=== PATIENT | female | born 1945 | race Caucasian/White ===

== ENCOUNTER → 2017-04-25 | Outpatient (CLI) | payer MEDICARE, OTHER | END | disposition home or self-care (01) | LOC: HKI 10:56 | PROVIDERS: ATTEND Orthopaedic Surgery | DX: M25.551 Pain in right hip (principal); M16.11 Unilateral primary osteoarthritis, right hip | CPT/HCPCS: G0463 ==

== ENCOUNTER → 2017-05-27 | Outpatient (CLI) | payer MEDICARE, OTHER ==
--- NOTE | 2017-05-27 15:47 | RADRPT ---
PROCEDURE: XR Right hip and pelvis. CLINICAL INDICATION: Right hip pain and pelvic pain. TECHNIQUE: 3 views. Frontal pelvis. Frontal and lateral right hip. COMPARISON: None. FINDINGS: There is no fracture or dislocation. The soft tissues are normal. There are degenerative changes of the right hip with joint space narrowing, osteophytes, subarticula r sclerosis, and subarticular cysts. There is mild right hip protrusio. The left hip is normal. There is no lytic or blastic lesion. There is no radiopaque foreign body. IMPRESSION: 1. Severe degenerative changes of the right hip amado 2. Otherwise unremarkable study. RPTAT: QQ .Brock Garcia MD, MD Date Time Electronically viewed and signed by .Brock Garcia MD, MD on 05/27/2017 15:47 .R/
== END | disposition home or self-care (01) ==
LOC: HKI 10:54
PROVIDERS: ATTEND Orthopaedic Surgery
DX: M25.551 Pain in right hip (principal); M16.11 Unilateral primary osteoarthritis, right hip
CPT/HCPCS: 73502; G0463

== ENCOUNTER 2017-06-09 05:11 | Inpatient (IN) | payer MEDICARE, OTHER ==
[2017-06-09] VITALS (40 sets, daily range): BP systolic 98–149; BP diastolic 53–88; PULSE 64–94; RESP 6–29; Ht 175.3 cm; Wt 84.1 kg
[~2017-06-09] VITALS: Ht 175.3 cm; Wt 84.1 kg
[2017-06-09] MEDS ORDERED: BACITRACIN 50000 UNITS INJ ONE (06:39)
[2017-06-09] MEDS ORDERED: VANCOMYCIN 1 GM INJ ONE (06:55)
[2017-06-09] MEDS ORDERED: POLYMYXIN B 500000 UNIT INJ ONE (06:55)
[2017-06-09] MEDS ORDERED: LISI20TA11 PO (06:55)
[2017-06-09] MEDS ORDERED: SODIUM CL BACTERIOSTATIC 30 ML INJ ONE (06:55)
[2017-06-09] MEDS ORDERED: CRES10 PO (06:55)
[2017-06-09] MEDS ORDERED: DESFLURANE 15 MIN ONE (07:00)
[2017-06-09] MEDS ORDERED: ONDANSETRON 4 MG IV X 1 DOSE IV SCH (07:00)
[2017-06-09] MEDS ORDERED: TRANEXAMIC ACID IVPB SCH (07:00)
[2017-06-09] MEDS ORDERED: LACTATED RINGER'S 1,000 ML IV SCH (07:00)
[2017-06-09] MEDS ORDERED: SOD CHLORIDE 0.9% IV SCH (07:00)
[2017-06-09] MEDS ORDERED: CELECOXIB 400 MG PO X1 DOSE PO SCH (07:00)
[2017-06-09] MEDS ORDERED: traMADOL 50 MG TAB X 1 DOSE PO SCH (07:00)
[2017-06-09] MEDS ORDERED: EPHEDrine SULFATE 50 MG/5 ML SYG ONE (07:00)
[2017-06-09] MEDS ORDERED: BUPIVACAINE LIPOSOME/PF 266 MG/20 ML VIAL INFIL SCH (07:00)
[2017-06-09] MEDS ORDERED: PAIN COCKTAIL-CEFUROXIME IRR SCH ×7 (07:00)
[2017-06-09] MEDS ORDERED: SOD CHLORIDE 0.9% IVPB SCH (07:00)
[2017-06-09] MEDS ORDERED: TRANEXAMIC ACID IV SCH (07:00)
[2017-06-09] MEDS ORDERED: CEFAZOLIN 2GM/50 ML (PMX) 50 ML X1 BEFORE INCISION IVPB SCH (07:00)
[2017-06-09] MEDS ORDERED: EXPAREL NOTE (BUPIVICAINE LIPOSOMAL) XX SCH (07:00)
[2017-06-09] MEDS ORDERED: oxyCODONE (CR) 10 MG TAB [oxyCONTIN] X1 DOSE PO SCH (07:00)
[2017-06-09] MEDS ORDERED: PREGABALIN 300 MG PO X1 PO SCH (07:00)
[2017-06-09] MEDS ORDERED: CEFAZOLIN 1 GM INJ ONE (07:08)
[2017-06-09] MEDS ORDERED: PROPOFOL 20 ML ONE (07:08)
[2017-06-09] MEDS ORDERED: ROCURONIUM 50 MG INJ ONE (07:08)
[2017-06-09] MEDS ORDERED: GLYCOPYRROLATE 0.4 MG INJ ONE (07:08)
[2017-06-09] MEDS ORDERED: NEOSTIGMINE 3 MG/3 ML SYRINGE ONE (07:08)
[2017-06-09] MEDS ORDERED: MIDAZOLAM 1 MG/ML 2 ML INJ ONE (07:11)
[2017-06-09] MEDS ORDERED: FENTAnyl 50 MCG/ML VIAL ONE (07:11)
[2017-06-09] MEDS ORDERED: ONDANSETRON 4 MG INJ ONE (07:11)
[2017-06-09] MEDS ORDERED: DEXAMETHASONE 4 MG/ML 1 ML INJ ONE (07:11)
[2017-06-09] MEDS ORDERED: ETOMIDATE 20 MG INJ ONE (07:12)
[2017-06-09] MEDS ORDERED: PROPOFOL 100 ML ONE (07:12)
--- NOTE | 2017-06-09 07:14 | HPN ---
Date/Time of Note Date/Time of Note DATE: 06/09/17 TIME: 07:14 Interval H&P Admission Note Pt. seen H&P reviewed: No system changes No changes from H&P on 05/23/17 by DAVID Baltazar MD Jun 09, 2017 07:14
[2017-06-09] MEDS ORDERED: ALBUTEROL 0.083% (NEB) 2.5 MG/3 ML AMP HHN PRN (08:30)
[2017-06-09] MEDS ORDERED: OXYCODONE/ACETAMINOPHEN (5/325) TAB PO PRN ×2 (08:30)
[2017-06-09] MEDS ORDERED: hydrALAzine 20 MG INJ IV PRN (08:30)
[2017-06-09] MEDS ORDERED: DIPHENHYDRAMINE 50 MG INJ IV PRN (08:30)
[2017-06-09] MEDS ORDERED: MEPERIDINE 25 MG INJ IV PRN (08:30)
[2017-06-09] MEDS ORDERED: LABETALOL HCL 20MG INJ IV PRN (08:30)
[2017-06-09] MEDS ORDERED: TRIMETHOBENZAMIDE 100 MG/ML VIAL IM PRN (08:30)
[2017-06-09] MEDS ORDERED: ONDANSETRON 4 MG INJ IV PRN ×2 (08:30→10:00)
[2017-06-09] MEDS ORDERED: MIDAZOLAM 1 MG/ML 2 ML INJ IV PRN (08:30)
[2017-06-09] MEDS ORDERED: EPHEDrine SULFATE 50 MG/5 ML SYG IV PRN (08:30)
[2017-06-09] MEDS ORDERED: HYDROmorphONE (0.2 MG/ML) 10ML SYG IV PRN ×3 (08:30)
[2017-06-09] MEDS ORDERED: IPRATROPIUM (NEB) 0.5 MG/2.5 ML AMP HHN PRN (08:30)
[2017-06-09] MEDS ORDERED: FENTAnyl 50 MCG/ML VIAL IV PRN ×3 (08:30)
--- NOTE | 2017-06-09 09:59 | PN ---
Date/Time of Note Date/Time of Note DATE: 06/09/17 TIME: 09:58 Assessment/Plan Lines/Catheters IV Catheter Type (from Nrsg): Peripheral IV Assessment/Plan Assessment/Plan Stable in PACU, s/p right anterior KEELEY -continue Ancef -pain meds as needed -ASA/SCDs -OOB with PT -check AM labs -monitor drain -d/c garcia in AM XR of the right hip is pending at this time Subjective 24 Hr Interval Summary Stable in PACU. Denies pain. Moving all extremities. Exam/Review of Systems Vital Signs Vitals Vital Signs Date Time Temp Pulse Resp B/P Pulse Ox O2 Delivery O2 Flow Rate FiO2 06/09/17 06:00 97.2 66 18 149/88 95 Room Air Exam Free Text/Dictation Hemovac: minimal Dressing dry Incision clean, dry, and intact without redness or drainage 5/5 Quadriceps, Tibialis Anterior, EHL, Gastroc, Soleus, Peroneals Normal sensation Palpable DT/PT, CR <2 sec No distal edema DREW WATKINS PA-C Jun 09, 2017 09:59
[2017-06-09] MEDS ORDERED: BISACODYL 10 MG SUPP PR PRN (10:00)
[2017-06-09] MEDS ORDERED: HYDROmorphONE 1 MG/ML SYG IV PRN (10:00)
[2017-06-09] MEDS ORDERED: NACL 0.9% 3 ML SYG IV SCH (10:00)
[2017-06-09] MEDS ORDERED: HYDROCODONE/APAP (5/325) TAB PO PRN (10:00)
[2017-06-09] MEDS ORDERED: NA PHOSPHATE/BIPHOS 133 ML ENEMA PR PRN (10:00)
[2017-06-09] MEDS ORDERED: ASPIRIN (EC) 325 MG TAB PO ONE (10:00)
[2017-06-09] MEDS ORDERED: MAGNESIUM HYDROXIDE 30ML CUP PO PRN (10:00)
[2017-06-09] MEDS ORDERED: DIPHENHYDRAMINE 25 MG CAP PO PRN (10:00)
--- NOTE | 2017-06-09 10:01 | OPR ---
Date/Time of Note Date/Time of Note DATE: 06/09/17 TIME: 09:58 Operative Report Procedure Description DATE: 06/09/2017 PREOPERATIVE DIAGNOSIS: Right hip osteoarthritis POSTOPERATIVE DIAGNOSIS: Right hip osteoarthritis OPERATION PERFORMED: Right anterior total hip arthroplasty SURGEON: David Salvador MD CATALOG LIBRARIAN: Bola Jeong PA-C COMPONENTS USED: DePuy size 52 mm Gription [place] cup, 52/36 neutral Altrex polyethylene liner, size 6 standard Actis stem, 36+1.5 ceramic head ANESTHESIA: Spinal plus general endotracheal intubation. ANESTHESIOLOGIST: Baudilio Crabtree M.D. ESTIMATED BLOOD LOSS: 400 cc INTRAVENOUS FLUIDS: Crystalloid 2 L. SPECIMENS: Femoral head. DRAINS: Hemovac 1 COMPLICATIONS: None. DISPOSITION: The patient tolerated the procedure well and was taken to the recovery room in stable condition. INDICATIONS: The patient is a 71-year-old woman who has had progressively worsening pain in the right hip with radiographic evidence of severe osteoarthritis. She has failed nonsurgical means of treatment to address her pain including activity modifications pain medications and ambulatory assist devices. Despite these measures she has had worsening pain and I feel she will benefit from a total hip arthroplasty through an anterior approach. The risks, benefits, and alternatives of the procedure were explained in detail to the patient. I explained the risks of the surgery to include, but not be limited to: bleeding and possible need for blood transfusion; infection; pain; stiffness; neurovascular injury with possible numbness, weakness, and/or paralysis anywhere from the hip down to the toes; fracture; instability; dislocation; leg length inequality; wear and/or loosening of the prosthesis and possible need for future revision; blood clots; pulmonary embolism; and anesthetic complications such as heart attack, stroke, GI bleed, pneumonia, and/ or . Ample time was allowed for the patient to ask questions, all of which were addressed and answered. The patient understood the risks involved and wished to proceed. Informed consent was signed prior to the procedure. PROCEDURE: The patient's right hip was initialed with a marking pen in the preoperative area to identify the correct operative site. The patient was brought to the operating room and transferred from the [facility] to the [facility] where a spinal anesthetic was administered. The patient was then anesthetized and intubated. A Garber catheter was placed. Both feet were placed into well padded boots which were then placed into the leg holders of the traction booms. A timeout was performed to confirm that the right side was the correct operative site. The patient was given 2 g of intravenous Ancef within one hour prior to the procedure. The operative hip was prepped and draped in the usual sterile fashion. A 10 cm oblique incision was made over the anterior aspect of the hip and carried down through subcutaneous tissue and fat with sharp dissection. The tensor fascia spring was incised along the length of the wound. The tensor fascia muscle was retracted laterally and the sartorius medially. The anterior circumflex vessels were identified and tied off with 2-0 silk suture and coagulated with the Tissue Link associate quality engineer. The rectus femoris was elevated off the anterior capsule and an anterior capsulectomy performed. A femoral neck osteotomy was made and the head removed from the acetabulum. The acetabulum was denuded of cartilage circumferentially, as was the femoral head. Retractors were placed around the acetabulum. The remnants of the labrum and ligamentum teres were excised. I reamed the acetabulum to the medial wall and then went into an anatomic position and increased the reamer size in 2 mm increments until I got a good bite and was down to bleeding subchondral bone. The [place] cup was opened and impacted into the acetabulum and sat flush circumferentially, getting a good bite. C-arm imaging showed it had about 40 to 45 degrees of abduction and 20 degrees of anteversion. The real liner was opened and impacted into the acetabulum and sat flush circumferentially. Attention was turned towards the femur. The operative leg was carefully lowered to the floor with the leg adducted. The foot was then externally rotated to approximately 110 degrees. A posteromedial release was performed to optimize exposure. The femoral hook was placed underneath the proximal femur and the hydraulic lift was then used to elevate the femur up out of the wound. The cookie cutter osteotome was used to remove the remaining overhanging greater trochanter. The femur was then broached, going up in one size increments until it sat flush with the neck cut and a stable fit was achieved. The trial neck and head were assembled and reduced into the acetabulum. Fluoroscopic imaging showed the components to be in good position and the leg lengths and offsets to be equal. At this point, the trial was dislocated and the trial broach removed. The canal was irrigated and dried. The real stem was opened and impacted into the femur. The trunnion was irrigated and dried, and the real femoral head was impacted onto the trunnion, and reduced into the acetabulum. The soft tissues were infiltrated with a mixture of 150 mg of 0.5% Bupivacaine, 8 mg of Duramorph, 300 mcg of epinephrine, 30 mg of Toradol, 100 mcg of clonidine, 750 mg of cefuroxime and 86 mL of normal saline, followed by an injection of 266 mg of liposomal Bupivacaine. At this point the hip was irrigated with a mixture of betadine/saline and then antibiotic saline with pulsatile lavage. A Hemovac drain was placed in the deep portion of the wound and brought out the anterolateral thigh. There was good hemostasis. The tensor fascia spring was repaired with a running #1 Vicryl. The deep fat layer was irrigated and closed with 2-0 Stratafix and the subcutaneous layer closed with 3 -0 Vicryl and the skin was closed with luz marina and then sealed with Dermabond. The drain was secured with 3-0 nylon. The sponge and needle counts were correct at the end of the case. The wound was covered with an occlusive dressing. The patient was awakened, extubated, and taken to the recovery room in stable condition. DAVID SALVADOR MD Jun 09, 2017 10:01
--- NOTE | 2017-06-09 10:05 | PDOCDIS ---
Discharge Instructions DIAGNOSIS Discharge Diagnosis s/p right anterior KEELEY CONDITION Patient Condition: Good HOME CARE INSTRUCTIONS: Diet Instructions: Regular ACTIVITY: Activity Restrictions: Slowly Increase Activity Rest between Activity Avoid heavy lifting Do not operate Machinery Do not operate Power Tool Avoid Heavy Housework Keep Limb Elevated Weight Bearing Bathing Restrictions: Shower FOLLOW UP/APPOINTMENTS Follow-up Plan follow up in the office on 06/22/17 OTHER ORDERS: Other Orders: S/P Anterior KEELEY Physical Therapy: Three times per week at home x 2 weeks Daily in Rehab/SNF WB STATUS: WBAT Strengthening exercises for both upper and un-operated lower extremities. 1. Gait training with front wheeled walker 2. Wide base gait, no pivot turns. 3. Abductor strengthening. 4. Quadriceps and hamstring strengthening. 5. May switch to cane in contra lateral hand 6 weeks after surgery. 6. Physical Therapy can open case if nursing is not available. 7. Ice Packs while at rest to surgical wound for 20 minutes, 3 times/day. 8. Patient requires mobile SCDs to reduce risk of developing DVT following KEELEY. Patient will use the mobile SCDs for 30 days postoperatively. Hip Precautions: No posterior hip precautions. Bathing assistance by home health aide twice weekly if Medicare patient. Occupational Therapy: Evaluation for assistive devices and ADL training. Wound Care: Keep incision dry & covered with Tegaderm until first visit with Dr. Eduardo Anticoagulation Orders: Enteric Coated Aspirin 325 mg po bid x 6 weeks from date of surgery Follow-up:Call for an appointment with Dr. Eduardo in 1 week after discharged from hospital at DME Orders: GERARD, 3-in-1 Commode, Mobile SCDs DREW WATKINS PA-C Jun 09, 2017 10:05
[2017-06-09] MEDS ORDERED: HYDR-3498 PO (10:07)
[2017-06-09] MEDS ORDERED: TRAM50TA2 PO (10:07)
[2017-06-09] MEDS ORDERED: PANT40TA4 PO (10:07)
[2017-06-09] MEDS ORDERED: ASPI325T32 PO (10:07)
--- NOTE | 2017-06-09 10:42 | RADRPT ---
PROCEDURE: XR Right Hip. CLINICAL INDICATION: Status post hip replacement TECHNIQUE: AP view of the right hip was obtained. The images reviewed on a PACS workstation. COMPARISON: May 27, 2017 FINDINGS: Right hip replacement is identified. Prosthetic components are in appropriate position and alignmen t. No fractures or destructive lesions are observed. Surgical drain is seen in the hip. Soft tissu e air is procedural in nature. IMPRESSION: Status post right hip replacement. Prosthetic components are in appropriate position and alignment. RPTAT: AA .Ian Castrejon MD, MD Date Time Electronically viewed and signed by .Ian Castrejon MD, on 06/09/2017 10:42 .P/
--- NOTE | 2017-06-09 10:43 | RADRPT ---
PROCEDURE: XR Pelvis. CLINICAL INDICATION: Status post right hip replacement. TECHNIQUE: Single AP view of the pelvis. COMPARISON: No prior studies are available for comparison. FINDINGS: Right hip replacement is identified. The prosthetic components are in appropriate position and alig nment. Diffuse osteopenia is observed. The osseous structures appear intact. No destructive bony lesions are observed. Moderate narrowing of the left hip joint is seen. Degenerative changes are n oted in the lower lumbar spine. Garber catheter is seen over the lower pelvis. Surgical drain is no aster of the right hip. Soft tissue air over the right hip is procedural in nature. IMPRESSION: Right hip replacement. Prosthetic components are in appropriate position and alignment. Osteopenia. Moderate narrowing of the left hip joint. Degenerative changes in the lower lumbar spine. RPTAT: AA .Ina Castrejon MD, Date Time Electronically viewed and signed by .Ian Castrejon MD, on 06/09/2017 10:43 .P/
--- NOTE | 2017-06-09 10:44 | RADRPT ---
PROCEDURE: X-ray fluoroscopy guidance CLINICAL INDICATION: Right hip replacement, fluoroscopic guidance TECHNIQUE: Fluoroscopic guidance was utilized for an intraoperative procedure. COMPARISON: None available FINDINGS: Fluoroscopic guidance was utilized for and intraoperative procedure. 0.5 minutes of fluoroscopy time was utilized for the procedure. 16 x-ray images were obtained during the procedure in progress. Fin al images demonstrate a right hip replacement. Prosthetic components appear in appropriate position and alignment. IMPRESSION: X-ray fluoroscopic guidance utilized for intraoperative procedure. Right hip replacement with prosthetic components in appropriate position and alignment. Please see procedure note for details. RPTAT: AA .Ian Castrejon MD, Date Time Electronically viewed and signed by .Ian Castrejon MD, on 06/09/2017 10:44 .P/
[2017-06-09 11:07] LABS: HEMATOCRIT 34.9 % (37.0-47.0); HEMOGLOBIN 11.7 g/dl (12.0-16.0)
[2017-06-09 11:32] LABS: CALCIUM 9.3 mg/dl (8.4-10.2); CREATININE 0.68 mg/dl (0.44-1.00); POTASSIUM 4.4 mmol/L (3.5-5.1)
[2017-06-09] MEDS: traMADol 50 MG TAB PO SCH ×3 (12:00→23:49)
[2017-06-09] MEDS ORDERED: CEFAZOLIN 2 GM/50 ML (PMX) 50 ML IVPB SCH (12:00)
[2017-06-09] MEDS: CEFAZOLIN 2 GM/50 ML (PMX) 50 ML IVPB SCH ×2 (12:51→18:14)
[2017-06-09] MEDS ORDERED: TRANEXAMIC ACID 840 MG in SOD CHLORIDE 0.9% 100 ML IVPB SCH ×2 (13:00→16:00)
--- NOTE | 2017-06-09 13:28 | CONS ---
DATE OF ADMISSION: 06/09/2017 DATE OF CONSULTATION: 06/09/2017 REASON FOR CONSULTATION: Thank you very much, Dr. Eduardo, for allowing me to evaluate the above patient, a 71-year-old female, who just underwent a right total hip replacement. HISTORICAL EVENTS: As you well know, this patient has had progressive disabling pain involving her right hip and because of this, elected to proceed with surgery. In recovery, she is comfortable, having no symptoms of shortness of breath, chest pain, nausea, vomiting, or abdominal pain, and in fact was seen by physical therapy, and has already been up weightbearing. PAST MEDICAL HISTORY: Includes: Hypertension, hyperlipidemia, history of a leiomyoma of the uterus, osteoarthritis. MEDICATION: 1. Lisinopril 20 mg per day. 2. Aspirin 81 mg per day. 3. Fexofenadine 180 mg as needed. 4. Crestor 10 mg daily. FAMILY HISTORY: To be reviewed later. ALLERGIES: NONE. PHYSICAL EXAMINATION: GENERAL APPEARANCE: [place] female no acute distress. VITAL SIGNS: BP 120/82, respirations are 18. She was afebrile. HEENT: Eyes, extraocular muscles were full. Nose, mouth, throat normal. NECK: Was supple. There was no jugular venous distention, thyroid enlargement, adenopathy. Carotids 2+. LUNGS: Clear. HEART: Rhythm regular. No murmur. No 3rd or 4th sound. ABDOMEN: Nontender. Liver and spleen were not palpable. No mass or tenderness were noted. EXTREMITIES: No edema. Calves nontender. Pulses 2+ (popliteal). NEUROLOGIC: No lateralizing motor weakness. IMPRESSION AND PLAN: 1. Stable postop right hip replacement. 2. History of hypertension. We will continue lisinopril and hold this medicine for systolic blood pressures less than 110. 3. Hyperlipidemia. To continue statin. 4. To evaluate daily for signs and symptoms of thromboembolic disease despite appropriate deep venous thrombosis prophylaxis. Dictated By: Jaime Ogden MD /zachery/marilynn Byers#: [id number]/Document#: [id number]
[2017-06-09] MEDS: LACTATED RINGER'S 1,000 ML IV SCH ×2 (15:59→17:50)
[2017-06-09] MEDS: PANTOPRAZOLE (EC) 40 MG TAB PO SCH (18:14)
[2017-06-09] MEDS: DOCUSATE SODIUM 100 MG CAP PO SCH (20:17)
[2017-06-09] MEDS: ATORVASTATIN 40 MG TAB PO SCH (20:17)
[2017-06-09] MEDS: LISINOPRIL 20 MG TAB PO SCH (21:00)
[2017-06-10 00:15] VITALS: BP 115/59; RESP 20
[2017-06-10] MEDS: LACTATED RINGER'S 1,000 ML IV SCH ×3 (01:50→17:50)
[2017-06-10] MEDS: CEFAZOLIN 2 GM/50 ML (PMX) 50 ML IVPB SCH (02:38)
[2017-06-10 05:00] VITALS: BP 124/56; PULSE 70; RESP 18
[2017-06-10 05:24] LABS: HEMATOCRIT 30.2 % (37.0-47.0); HEMOGLOBIN 10.1 g/dl (12.0-16.0)
[2017-06-10] MEDS: PANTOPRAZOLE (EC) 40 MG TAB PO SCH ×2 (05:40→17:53)
[2017-06-10] MEDS: traMADol 50 MG TAB PO SCH ×4 (05:40→23:55)
[2017-06-10 05:49] LABS: CALCIUM 9.2 mg/dl (8.4-10.2); CREATININE 0.64 mg/dl (0.44-1.00); POTASSIUM 4.7 mmol/L (3.5-5.1)
[2017-06-10 07:38] VITALS: BP 105/59; RESP 18
[2017-06-10 08:23] LABS: ADD UMIC NO; UR ASCORBIC ACID NEGATIVE (NEGATIVE); UR BILIRUBIN (Dip) NEGATIVE (NEGATIVE); UR BLOOD (Dip) NEGATIVE (NEGATIVE); UR CLARITY CLEAR (CLEAR); UR COLOR STRAW (YELLOW); UR GLUCOSE (Dip) NEGATIVE (NEGATIVE); UR KETONES (Dip) NEGATIVE (NEGATIVE); UR LEUKOCYTE ESTERASE (Dip) NEGATIVE Leu/ul (NEGATIVE); UR NITRITE (Dip) NEGATIVE (NEGATIVE); UR SPECIFIC GRAVITY (Dip) 1.009 (1.003-1.030); UR TOTAL PROTEIN (Dip) NEGATIVE (NEGATIVE); UR UROBILINOGEN (Dip) NEGATIVE (NEGATIVE)
--- NOTE | 2017-06-10 08:24 | CONS ---
Date/Time of Note Date/Time of Note DATE: 06/10/17 TIME: 08:23 Assessment/Plan Assessment/Plan Additional Assessment/Plan 1. Post op right hip pain, doing well. 2. HBP, controlled 3. Hyperlipidemia, statin has been continued 4. Labs rev Consultation Date/Type/Reason Admit Date/Time Jun 09, 2017 at 05:11 Initial Consult Date Detailed Summary Respiratory: No cough, No shortness of breath Cardiovascular: No chest pain Gastrointestinal: no complaints Genitourinary: no complaints Musculoskeletal: bone/joint pain (mild right hip pain) Exam/Review of Systems Vital Signs Vitals Vital Signs Date Time Temp Pulse Resp B/P Pulse Ox O2 Delivery O2 Flow Rate FiO2 06/10/17 07:38 98.1 61 18 105/59 99 06/10/17 05:00 Nasal Cannula 06/09/17 10:22 3.0 Intake and Output 06/09/17 06/09/17 06/10/17 14:59 22:59 06:59 Intake Total 2300 ml 1983.4 ml 1705 ml Output Total 900 ml 900 ml 880 ml Balance 1400 ml 1083.4 ml 825 ml Exam Neck: No jvd Respiratory: clear to auscultation Cardiovascular: regular rate and rhythm Gastrointestinal: soft Extremities: No edema (and no calf tend) Results Result Diagram: 06/10/1744606/10/17446 Results 24 hrs Laboratory Tests Test 06/09/17 10:50 06/10/17 04:47 Hemoglobin 11.7 L 10.1 L Hematocrit 34.9 L 30.2 L Sodium Level 144 145 H Potassium Level 4.4 4.7 Chloride Level 105 106 Carbon Dioxide Level 25 27 Anion Gap 18 H 17 H Blood Urea Nitrogen 17 13 Creatinine 0.68 0.64 Glucose Level 156 119 Calcium Level 9.3 9.2 Medications Medications Current Medications Miscellaneous Information 1 ea NOTE XX ; Start 06/09/17 at 07:00; Stop 06/12/17 at 07:01 Lisinopril (Zestril) 20 mg QHS PO ; Start 06/09/17 at 21:00 Atorvastatin Calcium 40 mg 40 mg DAILY@21 PO Last administered on 06/09/17t 20: 17; Admin Dose 40 MG; Start 06/09/17 at 21:00 Lactated Ringer's (Lr) 1,000 ml @ 125 mls/hr Q8H IV Last administered on 02:40; Admin Dose 125 MLS/HR; Start 06/09/17 at 09:50 Tramadol HCl (Ultram) 50 mg Q6 PO Last administered on 06/10/17 05:40; Admin Dose 50 MG; Start 06/09/17 at 12:00; Stop 06/12/17 at 11:59 Acetaminophen/ Hydrocodone Bitart (Icard (5/325)) 1 tab Q4H PRN PO PAIN LEVEL 1 -3; Start 06/09/17 at 10:00 Acetaminophen/ Hydrocodone Bitart (Icard (5/325)) 2 tab Q4H PRN PO PAIN LEVEL 4 -7; Start 06/09/17 at 10:00 Hydromorphone HCl (Dilaudid) 1 mg Q3H PRN IV PAIN LEVEL 8-10; Start 06/09/17 at 10:00 Ondansetron HCl (Zofran Inj) 4 mg Q6H PRN IV NAUSEA AND/OR VOMITING; Start at 10:00 Bisacodyl (Dulcolax Supp) 10 mg Q12H PRN SD CONSTIPATION; Start 06/09/17 at 10: 00 Magnesium Hydroxide (Milk Of Mag) 30 ml BID PRN PO CONSTIPATION; Start at 10:00 Sodium Biphosphate/ Sodium Phosphate (Fleet Enema) 133 ml DAILY PRN SD CONSTIPATION; Start 06/09/17 at 10:00 Docusate Sodium (Colace) 100 mg BID PO Last administered on 06/09/17 20:17; Admin Dose 100 MG; Start 06/09/17 at 21:00 Diphenhydramine HCl (Benadryl) 25 mg Q6H PRN PO PRURITUS; Start 06/09/17 at 10: 00 Aspirin (Ecotrin) 325 mg BID PO ; Start 06/10/17 at 09:00 Pantoprazole (Protonix Tab) 40 mg BID@,18 PO Last administered on 06/10/17 05:40; Admin Dose 40 MG; Start 06/09/17 at 18:00 BRODIE SHEARER MD Jun 10, 2017 08:24
[2017-06-10] MEDS: ASPIRIN (EC) 325 MG TAB PO SCH ×2 (08:56→21:29)
[2017-06-10] MEDS: DOCUSATE SODIUM 100 MG CAP PO SCH ×2 (08:56→21:30)
[2017-06-10] MEDS: HYDROCODONE/APAP (5/325) TAB PO PRN ×2 (08:57→13:04)
--- NOTE | 2017-06-10 09:22 | PN ---
Date/Time of Note Date/Time of Note DATE: 06/10/17 TIME: 09:21 Assessment/Plan Lines/Catheters IV Catheter Type (from Nrsg): Peripheral IV Garber in Place (from Nrsg): Yes Assessment/Plan Assessment/Plan Stable, POD #1, s/p right anterior KEELEY -d/c Ancef -pain meds as needed -ASA/SCDs -drain removed -OOB with PT -check AM labs -d/c planning for home Subjective 24 Hr Interval Summary No acute overnight events. Denies significant pain. Started PT in PACU yesterday. VSS, afebrile. Will plan to home upon discharge. Exam/Review of Systems Vital Signs Vitals Vital Signs Date Time Temp Pulse Resp B/P Pulse Ox O2 Delivery O2 Flow Rate FiO2 06/10/17 07:38 98.1 61 18 105/59 99 06/10/17 05:00 Nasal Cannula 06/09/17 10:22 3.0 Intake and Output 06/09/17 06/09/17 06/10/17 15:00 23:00 07:00 Intake Total 2300 ml 1983.4 ml 1705 ml Output Total 900 ml 900 ml 880 ml Balance 1400 ml 1083.4 ml 825 ml Exam Free Text/Dictation Hemovac: 130cc Dressing dry Incision clean, dry, and intact without redness or drainage 5/5 Quadriceps, Tibialis Anterior, EHL, Gastroc, Soleus, Peroneals Normal sensation Palpable DT/PT, CR <2 sec No distal edema Results Result Diagram: 06/10/17 0447 06/10/17 0447 DREW WATKINS PA-C Jun 10, 2017 09:22
[2017-06-10] MEDS: ATORVASTATIN 40 MG TAB PO SCH (21:30)
[2017-06-10 21:43] VITALS: BP 140/66; PULSE 81; RESP 17
[2017-06-10] MEDS: LISINOPRIL 20 MG TAB PO SCH (21:45)
[2017-06-11] MEDS: LACTATED RINGER'S 1,000 ML IV SCH ×3 (01:50→16:18)
[2017-06-11 02:00] VITALS: BP 116/56; RESP 20
[2017-06-11 05:28] LABS: HEMATOCRIT 29.9 % (37.0-47.0); HEMOGLOBIN 9.9 g/dl (12.0-16.0)
[2017-06-11] MEDS: traMADol 50 MG TAB PO SCH ×3 (05:30→17:55)
[2017-06-11] MEDS: PANTOPRAZOLE (EC) 40 MG TAB PO SCH ×2 (05:30→17:55)
[2017-06-11 05:36] LABS: CALCIUM 8.8 mg/dl (8.4-10.2); CREATININE 0.7 mg/dl (0.44-1.00); POTASSIUM 4.1 mmol/L (3.5-5.1)
[2017-06-11 07:00] VITALS: BP 130/70; RESP 20
--- NOTE | 2017-06-11 07:59 | PN ---
Date/Time of Note Date/Time of Note DATE: 06/11/17 TIME: 07:58 Assessment/Plan VTE Prophylaxis VTE Prophylaxis Intervention: ambulation, SCD's, other (Aspirin 325 mg twice daily) Lines/Catheters IV Catheter Type (from Nrsg): Peripheral IV Garber in Place (from Nrsg): No Assessment/Plan Assessment/Plan -Pain Meds as needed -Dress change performed today -OOB with PT -ASA/SCDs for DVT Prophylaxis -Continue monitoring with Internal Medicine -Patient Stable -Plan is to discharge home with home health tomorrow all things remaining stable. Subjective 24 Hr Interval Summary 71-year-old female postop day 2 status post right total hip arthroplasty via anterior route. Patient continues to do well. She does have some pain complaints with physical therapy typically around 4-6/10 that improves with pain medication. No pain at rest. Denies any calf pain, chest pain/tightness or shortness of breath. No acute overnight events. Constitutional: no complaints Pain Control: well controlled Exam/Review of Systems Vital Signs Vitals Vital Signs Date Time Temp Pulse Resp B/P Pulse Ox O2 Delivery O2 Flow Rate FiO2 06/11/17 02:00 98.7 79 20 116/56 96 06/10/17 21:43 Room Air 06/09/17 10:22 3.0 Intake and Output 06/10/17 06/10/17 06/11/17 15:00 23:00 07:00 Intake Total 500 ml 1200 ml 1200 ml Output Total 500 ml Balance 500 ml 700 ml 1200 ml Exam Free Text/Dictation -Incision: Clean, Dry and Intact without any redness or drainage -Thigh soft -5/5 Quadriceps, Tibialis Anterior, EHL Gastrocnemius/Soleus and Peroneals -Normal Sensation -Palpable DP/PT, Capillary Refill <2 secs -No Distal Edema -Negative Agustin Sign/No calf pain -Toes Freely Movable Constitutional: alert, oriented, well developed Results Result Diagram: 06/11/17 0500 06/11/17 0500 ALAINA HERNANDEZ PA-C Jun 11, 2017 07:59
[2017-06-11] MEDS: ASPIRIN (EC) 325 MG TAB PO SCH ×2 (09:19→20:17)
[2017-06-11] MEDS: DOCUSATE SODIUM 100 MG CAP PO SCH ×2 (09:19→20:17)
--- NOTE | 2017-06-11 09:41 | CONS ---
Date/Time of Note Date/Time of Note DATE: 06/11/17 TIME: 09:40 Assessment/Plan Assessment/Plan Additional Assessment/Plan Additional Assessment/Plan 1. Post op right hip pain, doing well, should be able to be dc tomm. 2. HBP, controlled 3. Hyperlipidemia, statin has been continued 4. Labs rev Consultation Date/Type/Reason Admit Date/Time Jun 09, 2017 at 05:11 Detailed Summary Respiratory: No cough, No shortness of breath Cardiovascular: No chest pain Gastrointestinal: no complaints Genitourinary: no complaints Musculoskeletal: bone/joint pain (midl right hip pain) Exam/Review of Systems Vital Signs Vitals Vital Signs Date Time Temp Pulse Resp B/P Pulse Ox O2 Delivery O2 Flow Rate FiO2 06/11/17 07:00 99.0 79 20 130/70 96 06/10/17 21:43 Room Air 06/09/17 10:22 3.0 Intake and Output 06/10/17 06/10/17 06/11/17 15:00 23:00 07:00 Intake Total 500 ml 1200 ml 1200 ml Output Total 500 ml Balance 500 ml 700 ml 1200 ml Exam Neck: No jvd Respiratory: clear to auscultation Cardiovascular: regular rate and rhythm Gastrointestinal: soft Extremities: No edema (and no calf tend bilat) Results Result Diagram: 06/11/17 0500 06/11/17 0500 Results 24 hrs Laboratory Tests Test 06/11/17 05:00 Hemoglobin 9.9 L Hematocrit 29.9 L Sodium Level 139 Potassium Level 4.1 Chloride Level 101 Carbon Dioxide Level 28 Anion Gap 14 Blood Urea Nitrogen 15 Creatinine 0.70 Glucose Level 117 Calcium Level 8.8 Medications Medications Current Medications Miscellaneous Information 1 ea NOTE XX ; Start 06/09/17 at 07:00; Stop 06/12/17 at 07:01 Lisinopril (Zestril) 20 mg QHS PO Last administered on 06/10/17 21:45; Admin Dose 20 MG; Start 06/09/17 at 21:00 Atorvastatin Calcium 40 mg 40 mg DAILY@21 PO Last administered on 06/10/17 21: 30; Admin Dose 40 MG; Start 06/09/17 at 21:00 Lactated Ringer's (Lr) 1,000 ml @ 125 mls/hr Q8H IV Last administered on 02:40; Admin Dose 125 MLS/HR; Start 06/09/17 at 09:50 Tramadol HCl (Ultram) 50 mg Q6 PO Last administered on 06/11/17 05:30; Admin Dose 50 MG; Start 06/09/17 at 12:00; Stop 06/12/17 at 11:59 Acetaminophen/ Hydrocodone Bitart ([place] (5/325)) 1 tab Q4H PRN PO PAIN LEVEL 1 -3 Last administered on 06/10/17 13:04; Admin Dose 1 TAB; Start 06/09/17 at 10: 00 Acetaminophen/ Hydrocodone Bitart ([place] (5/325)) 2 tab Q4H PRN PO PAIN LEVEL 4 -7; Start 06/09/17 at 10:00 Hydromorphone HCl (Dilaudid) 1 mg Q3H PRN IV PAIN LEVEL 8-10; Start 06/09/17 at 10:00 Ondansetron HCl (Zofran Inj) 4 mg Q6H PRN IV NAUSEA AND/OR VOMITING; Start at 10:00 Bisacodyl (Dulcolax Supp) 10 mg Q12H PRN [place] CONSTIPATION; Start 06/09/17 at 10: 00 Magnesium Hydroxide (Milk Of Mag) 30 ml BID PRN PO CONSTIPATION; Start at 10:00 Sodium Biphosphate/ Sodium Phosphate (Fleet Enema) 133 ml DAILY PRN [place] CONSTIPATION; Start 06/09/17 at 10:00 Docusate Sodium (Colace) 100 mg BID PO Last administered on 06/11/17 09:19; Admin Dose 100 MG; Start 06/09/17 at 21:00 Diphenhydramine HCl (Benadryl) 25 mg Q6H PRN PO PRURITUS; Start 06/09/17 at 10: 00 Aspirin (Ecotrin) 325 mg BID PO Last administered on 06/11/17 09:19; Admin Dose 325 MG; Start 06/10/17 at 09:00 Pantoprazole (Protonix Tab) 40 mg BID@,18 PO Last administered on 06/11/17 05:30; Admin Dose 40 MG; Start 06/09/17 at 18:00 BRODIE SHEARER MD Jun 11, 2017 09:41
[2017-06-11 14:00] VITALS: BP 110/58; RESP 18
[2017-06-11 20:00] VITALS: BP 119/58; RESP 18
[2017-06-11] MEDS: ATORVASTATIN 40 MG TAB PO SCH (20:17)
[2017-06-11] MEDS: LISINOPRIL 20 MG TAB PO SCH (20:17)
[2017-06-12] MEDS: traMADol 50 MG TAB PO SCH ×2 (00:38→06:17)
[2017-06-12] MEDS: LACTATED RINGER'S 1,000 ML IV SCH ×2 (01:50→09:50)
[2017-06-12 02:00] VITALS: BP 132/71; RESP 19
[2017-06-12] MEDS: PANTOPRAZOLE (EC) 40 MG TAB PO SCH (06:17)
[2017-06-12 06:59] LABS: HEMATOCRIT 32.9 % (37.0-47.0)
[2017-06-12 07:14] LABS: CALCIUM 9.2 mg/dl (8.4-10.2); CREATININE 0.66 mg/dl (0.44-1.00); POTASSIUM 4.2 mmol/L (3.5-5.1)
--- NOTE | 2017-06-12 07:45 | PN ---
Date/Time of Note Date/Time of Note DATE: 06/12/17 TIME: 07:43 Assessment/Plan VTE Prophylaxis VTE Prophylaxis Intervention: ambulation, SCD's, other (Aspirin 325 mg twice daily) Lines/Catheters IV Catheter Type (from Nrsg): Saline Lock Garber in Place (from Nrsg): No Assessment/Plan Assessment/Plan -Pain Meds as needed -Dress change performed today -ASA for DVT Prophylaxis x 6 weeks outpatient discussed. -Continue monitoring as outpatient on discharge -Follow-up at scheduled postop outpatient appointment or sooner if there is any issue. -Tegaderm dressings given with specific instructions to use as outpatient to keep wound dry until luz marina are moved around 10 days. -Hip precautions discussed -Patient Stable -Discharge to Home with home health Subjective 24 Hr Interval Summary 71-year-old female postop day 3 status post right total hip arthroplasty via anterior route. No pain complaints overnight. No acute events overnight. Patient is up and walking with physical therapy. Denies any chest pain/ tightness, shortness of breath or calf pain. Would like to go home today with home health. Exam/Review of Systems Vital Signs Vitals Vital Signs Date Time Temp Pulse Resp B/P Pulse Ox O2 Delivery O2 Flow Rate FiO2 06/12/17 02:00 98.9 76 19 132/71 94 06/10/17 21:43 Room Air 06/09/17 10:22 3.0 Intake and Output 06/11/17 06/11/17 06/12/17 15:00 23:00 07:00 Intake Total 1260 ml 1200 ml Output Total 900 ml Balance 360 ml 1200 ml Exam Free Text/Dictation -Incision: Clean, Dry and Intact without any redness or drainage -Thigh soft -5/5 Quadriceps, Tibialis Anterior, EHL Gastrocnemius/Soleus and Peroneals -Normal Sensation -Palpable DP/PT, Capillary Refill <2 secs -No Distal Edema -Negative Agustin Sign/No calf pain -Toes Freely Movable Constitutional: alert, oriented, well developed Results Result Diagram: 06/12/17 0509 06/12/17 0509 ALAINA HERNANDEZ PA-C Jun 12, 2017 07:45
[2017-06-12 08:33] VITALS: BP 130/66; RESP 19
[2017-06-12] MEDS: DOCUSATE SODIUM 100 MG CAP PO SCH (09:19)
[2017-06-12] MEDS: ASPIRIN (EC) 325 MG TAB PO SCH (09:19)
--- NOTE | 2017-06-12 10:48 | CONS ---
Date/Time of Note Date/Time of Note DATE: 06/12/17 TIME: 10:47 Assessment/Plan Assessment/Plan Additional Assessment/Plan 1. Post op right hip pain, doing well and can be dc'd 2. HBP, controlled 3. Hyperlipidemia, statin has been continued 4. Labs rev Consultation Date/Type/Reason Admit Date/Time Jun 09, 2017 at 05:11 Detailed Summary Respiratory: No cough, No shortness of breath Cardiovascular: No chest pain Gastrointestinal: No no complaints Genitourinary: No no complaints Musculoskeletal: bone/joint pain (mild right hip pain) Exam/Review of Systems Vital Signs Vitals Vital Signs Date Time Temp Pulse Resp B/P Pulse Ox O2 Delivery O2 Flow Rate FiO2 06/12/17 08:33 98.6 73 19 130/66 96 06/10/17 21:43 Room Air 06/09/17 10:22 3.0 Intake and Output 06/11/17 06/11/17 06/12/17 15:00 23:00 07:00 Intake Total 1260 ml 1200 ml Output Total 900 ml Balance 360 ml 1200 ml Exam Neck: No jvd Respiratory: clear to auscultation Cardiovascular: regular rate and rhythm Gastrointestinal: soft, No tender Extremities: No edema (and no calf tend) Results Result Diagram: 06/12/17 0509 06/12/17 0509 Results 24 hrs Laboratory Tests Test 06/12/17 05:09 Hemoglobin 11.0 L Hematocrit 32.9 L Sodium Level 143 Potassium Level 4.2 Chloride Level 99 Carbon Dioxide Level 31 Anion Gap 17 H Blood Urea Nitrogen 14 Creatinine 0.66 Glucose Level 104 Calcium Level 9.2 Medications Medications Current Medications Lisinopril (Zestril) 20 mg QHS PO Last administered on 06/11/17 20:17; Admin Dose 20 MG; Start 06/09/17 at 21:00 Atorvastatin Calcium 40 mg 40 mg DAILY@21 PO Last administered on 06/11/17 20: 17; Admin Dose 40 MG; Start 06/09/17 at 21:00 Lactated Ringer's (Lr) 1,000 ml @ 125 mls/hr Q8H IV Last administered on 02:40; Admin Dose 125 MLS/HR; Start 06/09/17 at 09:50 Tramadol HCl (Ultram) 50 mg Q6 PO Last administered on 06/12/17 06:17; Admin Dose 50 MG; Start 06/09/17 at 12:00; Stop 06/12/17 at 11:59 Acetaminophen/ Hydrocodone Bitart ([place] (5/325)) 1 tab Q4H PRN PO PAIN LEVEL 1 -3 Last administered on 06/10/17 13:04; Admin Dose 1 TAB; Start 06/09/17 at 10: 00 Acetaminophen/ Hydrocodone Bitart ([place] (5/325)) 2 tab Q4H PRN PO PAIN LEVEL 4 -7; Start 06/09/17 at 10:00 Hydromorphone HCl (Dilaudid) 1 mg Q3H PRN IV PAIN LEVEL 8-10; Start 06/09/17 at 10:00 Ondansetron HCl (Zofran Inj) 4 mg Q6H PRN IV NAUSEA AND/OR VOMITING; Start at 10:00 Bisacodyl (Dulcolax Supp) 10 mg Q12H PRN [place] CONSTIPATION; Start 06/09/17 at 10: 00 Magnesium Hydroxide (Milk Of Mag) 30 ml BID PRN PO CONSTIPATION; Start at 10:00 Sodium Biphosphate/ Sodium Phosphate (Fleet Enema) 133 ml DAILY PRN [place] CONSTIPATION; Start 06/09/17 at 10:00 Docusate Sodium (Colace) 100 mg BID PO Last administered on 06/12/17 09:19; Admin Dose 100 MG; Start 06/09/17 at 21:00 Diphenhydramine HCl (Benadryl) 25 mg Q6H PRN PO PRURITUS; Start 06/09/17 at 10: 00 Aspirin (Ecotrin) 325 mg BID PO Last administered on 06/12/17 09:19; Admin Dose 325 MG; Start 06/10/17 at 09:00 Pantoprazole (Protonix Tab) 40 mg BID@18 PO Last administered on 06/12/17 06:17; Admin Dose 40 MG; Start 06/09/17 at 18:00 BRODIE SHEARER MD Jun 12, 2017 10:48
--- NOTE | 2017-06-13 10:57 | DS ---
Date/Time of Note Date/Time of Note DATE: 06/13/17 TIME: 10:55 Discharge Summary Admission/Discharge Info Admit Date/Time Jun 09, 2017 at 05:11 Discharge Date/Time Jun 12, 2017 at 13:36 Discharge Diagnosis s/p right anterior [place] Patient Condition: Good Procedures Right anterior total hip arthroplasty Hospital Course This is a 71-year-old female, who was seen in the clinic initially complaining of right hip pain. X-rays demonstrated advanced osteoarthritis of the right hip , and is thought she would benefit from right anterior total hip arthroplasty. On 06/09/2017, the patient was admitted and taken to the operating room, where she underwent a right anterior total hip arthroplasty. There were no intraoperative complications. The patient tolerated the procedure well. She was taken to recovery room in stable condition. Pain was well-controlled oral pain medication. She was started on aspirin and SCDs for DVT prophylaxis. She remained hemodynamically stable and neurovascularly intact throughout her hospital stay. She began physical therapy on postoperative day 1, continued to make a progress. Ultimately she was deemed stable for discharge home on postoperative day 3. Prior to discharge, the incision was inspected and noted to be clean, dry, and intact. Dressing changes were done prior to patient going home. Discharge instructions: The patient will be discharged home in stable condition. She is to resume a normal diet. She is weightbearing as tolerated on the right lower extremity. She will begin physical therapy with home health. Be discharged home with a medication noted, is to resume all of her normal home medication. Patient is to call the office or go to emergency room for any concerns including increased redness, swelling, drainage, fever, or any concerns regarding the operation or site of incision. Home Meds Active Scripts Tramadol HCl (Tramadol HCl) 50 Mg Tablet, 50 MG PO .PRE-OP for 30 Days, #60 TAB Prov:DREW WATKINS PA-C 06/09/17 Pantoprazole* (Pantoprazole*) 40 Mg Tablet.dr, 40 MG PO DAILY for 40 Days, #40 Prov:DREW WATKINS PA-C 06/09/17 Hydrocodone Bit-Acetaminophen (Hydrocodone Bit-APAP) 5-325MG Tablet, 1 TAB PO Q4H Y for PAIN LEVEL 1-3 for 30 Days, #60 TAB Prov:DREW WATKINS PA-C 06/09/17 Aspirin (Aspir-Emily) 325 Mg Tablet., 325 MG PO BID for 40 Days, #80 Prov:DREW WATKINS PA-C 06/09/17 Reported Medications Rosuvastatin Calcium* (Crestor*) 10 Mg Tablet, 10 MG PO QHS, #30 TAB 06/09/17 Lisinopril* (Lisinopril*) 20 Mg Tablet, 20 MG PO QHS, #30 TAB 06/09/17 Follow-up Plan Follow-up in the office on 06/22/2017 Primary Care Provider Not On Staff Doctor DREW WATKINS PA-C Jun 13, 2017 10:57
== END 2017-06-12 13:36 | disposition home health service (06) | DRG 470 ==
LOC: REC 05:11 → MS1 14:27
PROVIDERS: ADMIT Orthopaedic Surgery; ATTEND Orthopaedic Surgery
PROC: 0SR904A Replacement of Right Hip Joint with Ceramic on Polyethylene Synthetic Substitute, Uncemented, Open Approach (ICD-10-PCS; principal; 2017-06-09 07:00)
DX: M16.11 Unilateral primary osteoarthritis, right hip (principal); I10 Essential (primary) hypertension; E78.2 Mixed hyperlipidemia; D25.9 Leiomyoma of uterus, unspecified; M19.90 Unspecified osteoarthritis, unspecified site; Z79.82 Long term (current) use of aspirin
CPT/HCPCS: 72170; 73500; 73530; 80048; 81003; 85014; 85018; 85730; 86850; 86900; 86901; 86920; 87081; 87086; 88304; 88311; 97110; 97116; 97162; 97530; C1776; C9290; J0171; J0690; J0697; J0735; J1100; J1885; J2250; J2274; J2405; J2710; J3010; J3370; J7120

== ENCOUNTER → 2017-06-22 | Outpatient (CLI) | payer MEDICARE, OTHER ==
[~2017-06-22] MED LIST: ASPI325T32 PO; CRES10 PO; HYDR-3498 PO; LISI20TA11 PO; PANT40TA4 PO; TRAM50TA2 PO
--- NOTE | 2017-06-22 10:38 | PN ---
Date/Time of Note Date/Time of Note DATE: 06/22/17 TIME: 10:33 Outpatient Progress Note HPI Ankita presents today for her first postoperative evaluation on her right hip. She is 12 days status post right anterior total hip arthroplasty. She is doing well overall. She is doing physical therapy with home health. She denies any fevers or chills. She denies any significant pain but is having some sciatica related to her low back trouble. She is taking aspirin twice daily for DVT prophylaxis. She presents today for her first postoperative evaluation. Physical Exam On exam today, she is alert oriented 4, and in no acute distress. She is ambulating with a front wheel walker. Exam of the incision demonstrates it to be clean, dry, and intact. Talha are in place. There is no erythema, warmth , pus, or drainage noted. Her leg lengths are equal. Compartments are soft. There is no significant soft tissue swelling. Homans sign is negative. She is neurovascularly intact distally. Imaging: x-rays of the right hip were obtained today and reviewed by me. The cup is in good anatomic alignment. There is no evidence of fractures or dislocations. Allergies Coded Allergies: No Known Allergies (Verified Allergy, Unknown, 06/09/17) Assessment/Plan Assessment: 10 days status post right anterior total hip arthroplasty Plan: The talha were removed today, and Steri-Strips were applied. She is to continue aspirin 325 mg twice daily for DVT prophylaxis. She is to continue doing physical therapy with home health and transition to an outpatient physical therapy program. Additionally she is to transition to a cane as indicated by PT. She should follow-up with Dr. Eduardo in 4 weeks at [facility] for a repeat evaluation. Medications Home Meds Active Scripts Tramadol HCl (Tramadol HCl) 50 Mg Tablet, 50 MG PO .PRE-OP for 30 Days, #60 TAB Prov:DREW WATKINS PA-C 06/09/17 Pantoprazole* (Pantoprazole*) 40 Mg Tablet.dr 40 MG PO DAILY for 40 Days, #40 Prov:DREW WATKINS PA-C 06/09/17 Hydrocodone Bit-Acetaminophen (Hydrocodone Bit-APAP) 5-325MG Tablet, 1 TAB PO Q4H Y for PAIN LEVEL 1-3 for 30 Days, #60 TAB Prov:DREW WATKINSC 06/09/17 Aspirin (Aspir-Emily) 325 Mg Tablet., 325 MG PO BID for 40 Days, #80 Prov:DREW WATKINS PA-C 06/09/17 Reported Medications Rosuvastatin Calcium* (Crestor*) 10 Mg Tablet, 10 MG PO QHS, #30 TAB 06/09/17 Lisinopril* (Lisinopril*) 20 Mg Tablet, 20 MG PO QHS, #30 TAB 06/09/17 DREW WATKINS PA-C Jun 22, 2017 10:38
--- NOTE | 2017-06-22 12:01 | RADRPT ---
PROCEDURE: Hip radiograph CLINICAL INDICATION: Pain. TECHNIQUE: AP views of the right hip were performed. COMPARISON: Radiograph 05/27/2017. FINDINGS: Alignment of new right total hip arthroplasty is anatomic. No hardware fracture. No suspicious amado-hardware lucency. There are sclerotic changes of the acetabular component. Mild sacroiliac joint space narrowing with subchondral cyst. Mild left hip joint space narrowing. IMPRESSION: Interval right total hip arthroplasty. Alignment is anatomic. RPTAT: PP Physician Leona Date Time Electronically viewed and signed by Physician Leona on 06/22/2017 12:01 LG/
== END | disposition home or self-care (01) ==
LOC: HKI 10:13
PROVIDERS: ATTEND Orthopaedic Surgery
DX: M25.551 Pain in right hip (principal); Z47.1 Aftercare following joint replacement surgery; Z96.641 Presence of right artificial hip joint; Z79.82 Long term (current) use of aspirin
CPT/HCPCS: 73502